=== PATIENT | female | born 1980 | race African-American/Black ===

== ENCOUNTER 2021-07-11 07:40 | Emergency (ER) | payer OTHER, SELFPAY ==
--- NOTE | ~2021-07-11 | XR_ITS ---
EXAMINATION: XR CHEST CLINICAL INFORMATION: Cough COMPARISON: None TECHNIQUE: Frontal view of the chest was obtained. FINDINGS: No significant abnormality is noted involving the heart, lungs, mediastinum, bony thorax or soft tissues. XR/XR chest 1V IMPRESSION: Unremarkable examination.
--- NOTE | ~2021-07-11 | CT_ITS ---
EXAMINATION: CT HEAD WITHOUT CONTRAST CLINICAL INFORMATION: Headache COMPARISON: None TECHNIQUE: Contiguous axial imaging was performed from the skull base to vertex without intravenous administration of contrast. This CT examination was performed using dose optimization techniques as appropriate, variously including the following: *Automated exposure control *Adjustment of mA and/or kV according to patient size (this includes techniques or standardized protocols for targeted exams where dose is matched to indication/reason for exam; i.e. extremities or head) *Use of iterative reconstruction technique DLP: 613 mGy-cm FINDINGS: There is no evidence of acute intracranial hemorrhage or territorial infarction. No abnormal mass effect or midline shift is seen. [place] to white matter differentiation is well preserved. No extra-axial fluid collections are identified. The ventricles are normal in size. There is no abnormal attenuation within the brain parenchyma. The osseous structures and soft tissues are normal. The mastoid air cells and visualized portions of the paranasal sinuses are well aerated. CT/CT head/brain wo con IMPRESSION: No CT evidence of acute intracranial pathology.
--- NOTE | 2021-07-11 07:48 | ED_ITS ---
HPI - Headache General Chief Complaint: Headache Stated Complaint: HEADACHE Time Seen by Provider: 07/11/21 07:41 Source: patient Mode of arrival: ambulatory Limitations: no limitations History of Present Illness MD elicited complaint: headache Pertinent past history: other (on augmentin for pneumonia dx by CXR on ) Onset (ago): day(s) (5) Onset description: gradually Location: diffuse Severity: moderate Quality & Timing: throbbing Exacerbating factors: other (cough) Relieving factors: nothing Context: occurred at rest Associated symptoms: fever and cough Treatments prior to arrival: other (on augmentin) Related Data Previous Rx's Medication Instructions Recorded [id number] 1 tab PO Q6H PRN #20 tab 07/11/21 50 mg-325 mg-40 mg tablet cyclobenzaprine 10 mg tablet 10 mg PO TID PRN #14 tab 07/11/21 ondansetron 4 mg disintegrating 4 mg PO Q8H PRN #20 tab 07/11/21 tablet Allergies Allergy/AdvReac Type Severity Reaction Status Date / Time No Known Allergies Allergy Verified 07/11/21 09:29 Review of Systems Review of Systems: Constitutional : No Fever, No Chills, No Fatigue ENT/Mouth : No sore throat, No Rhinorrhea Eyes: No Eye Pain, No Swelling, No Redness Cardiovascular : No Chest Pain, No SOB, No Dyspnea on Exertion Respiratory : pos Cough, No Sputum Gastrointestinal : No Nausea, No Vomiting, No Diarrhea, No abdominal Pain Genitourinary : No Dysuria, No Urinary Frequency, No Hematuria, Musculoskeletal : No joint pain, No Myalgias, No Joint Swelling Skin : No Skin Lesions, No rash Neuro : No Weakness, No Numbness, No Dizziness, positive Headache Psych : No Anxiety/Panic, No Depression Heme/Lymph: No Bruising, No Bleeding,No Lymphadenopathy Endocrine : No Polyuria, No Polydipsia All other systems reviewed and are negative [facility] Past Medical History Attestation statement: The following information was validated with the patient. Medical History Pneumonia Social History Social History (Updated 07/11/21 @ 08:03 by Ena Rose DO) Patient Tobacco Use Status: Never used Tobacco Advance Directives: No Advance Directives Information Provided: No Patient : No Physical Exam Vital Signs: Vital Signs: Last Vital Signs Temp 97.7 F 07/11/21 07:55 Pulse 91 07/11/21 07:55 Resp 18 07/11/21 07:55 BP 130/86 07/11/21 07:55 Pulse Ox 98 07/11/21 07:55 Body Mass Index 44.1 Appearance: Alert. Oriented X3. No acute distress. Eyes: Pupils equal, round and reactive to light. ENT: Pharynx normal. normal TMs Neck: Normal inspection. Neck supple. no meningeal signs CVS: Normal heart rate and rhythm. Pulses normal. Respiratory: No respiratory distress. Breath sounds normal. Abdomen: Soft and non-tender. Skin: Skin warm and dry. Normal skin color. Normal skin turgor. Extremities: No lower extremity edema. No calf ttp Neuro: Oriented X 3. No motor deficit. No sensory deficit. Course Course Course Narrative: patient states she feels much better stable for DC MDM - Headache MDM Narrative Medical decision making narrative: 40 yo female with hx of pneumonia dx on has had headaches and fever/cough. She has been taking augmentin with s ome relief. Had negative COVID test last sunday. She is fully vaccinated. At this time will need CXR, COVID swab and supportive medicaitons - given duration and onset of symptoms without meningeal irritation I do not suspect SAH or [employer] infection. Lab Data Labs: Lab Results 07/11/21 Range/Units 08:05 COVID-19 ([facility]) Negative (Negative) COVID-19 Clin Com See Note Discharge Plan Discharge Clinical Impression: Tension headache Patient Disposition: Home, Self-Care Instructions: Tension Headache (ED) Additional Instructions: return to ED for any worsening symptoms or concerns COVID TEST WAS NEGATIVE Prescriptions: New cyclobenzaprine 10 mg tablet 10 mg PO TID PRN (Reason: muscle spasm) Qty: 14 RF: 0 exkpmikbbo-ajazwrysdduuf-idfb 50-325-40 mg tablet 1 tab PO Q6H PRN (Reason: pain) Qty: 20 RF: 0 ondansetron 4 mg tablet,disintegrating 4 mg PO Q8H PRN (Reason: nausea and vomiting) Qty: 20 RF: 0 Referrals: Joanne Christensen NP [Primary Care Provider] - 2 days (IF NOT BETTER) Stand Alone Forms: Work/School Release
[2021-07-11 07:55] VITALS: BP 130/86; PULSE 91; RESP 18; TEMP 36.5; O2SAT 98; BMI 44.1
[2021-07-11] MEDS: Butalb/Acetamin/Caff 50/325/40 TABLET 1 TAB PO (08:03)
[2021-07-11] MEDS: Ibuprofen 600 MG TABLET PO (08:03)
[2021-07-11 08:29] LABS: COVID-19 Test Negative (Negative); IDNOW Serial# 9DD0AD1C
[2021-07-11] MEDS: diphenhydrAMINE HCL 50 MG/ML VIAL 25 MG IVPUSH (10:08)
[2021-07-11] MEDS: Magnesium Sulfate/H2O 2 GM/50 ML PIGGYBACK IV (10:08)
[2021-07-11] MEDS: Metoclopramide HCl 10 MG/2 ML VIAL IVPUSH (10:08)
[2021-07-11] MEDS: 0.9 % Sodium Chloride 1,000 ML 999 ML IV (10:09)
== END 2021-07-11 12:43 | disposition home or self-care (01) ==
PROVIDERS: Emergency Provider Emergency Medicine; PCP Nurse Practitioner
DX: G44.209 Tension-type headache, unspecified, not intractable (principal); Z20.822 Contact with and (suspected) exposure to COVID-19; Z87.01 Personal history of pneumonia (recurrent)
CPT/HCPCS: 36415; 70450; 71045; 87635; 96365; 96366; 96375; 99283; 99284; J1200; J2765; J3475